=== PATIENT | male | born 1940 | race Caucasian/White ===

== ENCOUNTER 2024-12-27 11:45 | Emergency (ER) | payer OTHER, SELFPAY ==
[2024-12-27] VITALS (31 sets, daily range): BP systolic 56–110; BP diastolic 41–63; PULSE 83–127; RESP 17–48; O2SAT 45–100
--- NOTE | 2024-12-27 11:51 | ECG_ITS ---
[employer] [facility] [facility] 2024-12-27 Pat Name: Dk Deluca Department: Room: Gender: Male Optical Dispenser: : 1936-12-27 Requested By: Mike Love Order Number: [id number] Jam MD: Uri Bennett M.D. Measurements Intervals [place] Rate: 92 P: 72 KS: 167 QRS: 80 QRSD: 93 T: 68 QT: 309 QTc: 382 Interpretive Statements SINUS RHYTHM LOW QRS VOLTAGE IN PRECORDIAL LEADS [QRS DEFLECTION < 1.0 mV IN CHEST LEADS] No previous ECG available for comparison Electronically Signed On 12-29-2024 23:31:15 CDT by Uri Bennett M.D. [id number]
[2024-12-27 11:52] LABS: Arterial Blood Gas Hematocrit 31.2 % (42-52); Base Excess ABG -6.1 mmol/L (-2.0-2.0); Blood Gas Allen Test Pos; Blood Gas Operator Identificat WALCI; Blood Gas Sample Site Radial, right; Blood Gas Sample Type Arterial; HCO3 ABG 24.4 mmol/L (22-26); Oxygen Device VENT; PO2 FiO2 Ratio Arterial Blood 186
[2024-12-27 11:53] LABS: ABG PCO2 78.9 mmHg (35-45)
[2024-12-27 12:02] LABS: Glucose Point of Care 124 mg/dL (70-110)
--- NOTE | 2024-12-27 12:02 | PC.RESP ---
pt arrived intubated by ems with 8.5 tube approx 25cm at lip
--- NOTE | 2024-12-27 12:05 | CT_ITS ---
WS: [id number] CT HEAD NONCONTRAST HISTORY: unresponsive TECHNIQUE: Contiguous axial imaging performed through the brain. Bone and soft tissue windows. Sagittal and coronal reformats reviewed. All CT scans at [facility] use at least one of these dose optimization techniques: automated exposure control; mA and/or kV adjustment per patient size (includes targeted exams where dose is matched to clinical indication); or iterative reconstruction. DLP: 1261.94 mGy.cm COMPARISON: None available. No acute intracranial hemorrhage, midline shift or mass effect. Moderate symmetric atrophy. Severe small vessel disease confluent throughout the white matter. Additional small vessel disease bilaterally in the ge. Mild cerebellar atrophy. Ventricles: Ventricles and extra-axial spaces are prominent on the basis of atrophy. No inferior displacement of the cerebellar tonsils. Paranasal sinuses: As visualized are clear. Mastoid air cells: Well pneumatized. Calvarium and scalp: Skull is intact with no soft tissue edema or swelling. CT/CT head wo con* [id number] IMPRESSION: 1. No acute intracranial hemorrhage or edema. 2. Moderate atrophy with severe small vessel disease. 3. Additional small vessel disease in the ge.
--- NOTE | 2024-12-27 12:05 | W.ED.NEUROSD ---
HPI - Neuro Symptoms/Deficit General: Chief Complaint: Neuro Symptoms/Deficit Stated Complaint: unresponsive - intubated Time Seen by Provider: 12/27/24 11:48 History of Present Illness: Unknown aged male brought in by EMS after being found unresponsive at a local hotel. I did find a used needle in the toilet. Patient was intubated in the field, was given 2 L of normal saline and route started on Levophed. He received etomidate and then fentanyl and Versed in route . No prior medical history is available. Related Data Home Medications ?Medication ?Instructions ?Recorded ?Confirmed albuterol sulfate 90 mcg/actuation 2 puff inhalation QID PRN copd 12/27/24 12/27/24 aerosol inhaler amlodipine 10 mg tablet 10 mg PO DAILY 12/27/24 12/27/24 cholecalciferol (vitamin D3) 25 25 mcg PO DAILY 12/27/24 12/27/24 mcg (1,000 unit) chewable tablet (Vitamin D3) diphenhydramine HCl 25 mg capsule 25 mg PO BEDTIME PRN Sleep 12/27/24 12/27/24 (Benadryl) docusate sodium 100 mg capsule 100 mg PO TID PRN stool softener 12/27/24 12/27/24 (Colace) finasteride 5 mg tablet 5 mg PO DAILY 12/27/24 12/27/24 furosemide 40 mg tablet 40 mg PO QAM 12/27/24 12/27/24 imiquimod 5 % topical cream packet See Rx Instructions .Route .COMPLEX 12/27/24 12/27/24 ipratropium 0.5 mg-albuterol 3 mg 3 ml inhalation QID PRN copd 12/27/24 12/27/24 (2.5 mg base)/3 mL nebulization soln lactulose 10 gram/15 mL oral 15 ml PO DAILY 12/27/24 12/27/24 solution multivitamin 1 tab PO DAILY 12/27/24 12/27/24 rivaroxaban 20 mg tablet 20 mg PO QPM 12/27/24 12/27/24 simvastatin 40 mg tablet 20 mg PO QPM 12/27/24 12/27/24 tiotropium 2.5 mcg-olodaterol 2.5 2 puff inhalation DAILY 12/27/24 12/27/24 mcg/actuation mist for inhalation triamcinolone acetonide 0.1 % See Rx Instructions .Route .COMPLEX 12/27/24 12/27/24 topical ointment Allergies Allergy/AdvReac Type Severity Reaction Status Date / Time No Known Allergies Allergy Unverified 12/27/24 12:57 Review of Systems General: Reports: ROS unobtainable due to endotracheal tube and ROS unobtainable due to medical condition Physical Exam Const: GENERAL APPEARANCE: disheveled, frail appearing and patient mechanically ventilated Eye: PUPIL: Yes pupil size - right Right pupil size (mm): 2 and Yes pupil size - left Left pupil size (mm): 2 Cardio: COMMON NORMALS: regular rate and regular rhythm JUGULAR VENOUS DISTENTION: JVD positive to the level of the angle of the jaw RATE: regular rate RHYTHM: regular rhythm Neuro: OTHER: Patient intubated, responds the pain Skin: OTHER: No rash, however bedbugs are present Course Vital Signs: Vital signs: Vital Signs Pulse Rate 94 12/27/24 18:15 Respiratory Rate 48 H 12/27/24 18:15 Blood Pressure 84/55 12/27/24 18:15 Pulse Oximetry 45 L 12/27/24 18:15 Oxygen Delivery Me thod Mechanical Ventil ation 12/27/24 12:30 Fraction of Inspir ed Oxygen 75 12/27/24 16:05 MDM - Neuro Symptoms/Deficit Medical Decision Making Patient with respiratory failure with what appears to be hypoxic brain injury/encephalopathy. Patient was seen by the neurologist Dr. Coe. Patient did not have any contact information but we were able to eventually contact the son, sister and niece. They felt that patient would prefer not to be kept alive on a ventilator and would be preferred to be made more comfortable. Following this discussion patient will be extubated with all medication should often be placed on comfort care per family request. I do feel based on patient's likely outcome that this is a proper decision as he has very poor outcome. Patient will be admitted to the hospital for comfort care Prior to be admitted to the floor, patient did pass, Time of 1855 Lab Data 12/27/24 12:20 12/27/24 13:[address] 12/27/24 12:05 IMPRESSION: 1. No acute intracranial hemorrhage or edema. 2. Moderate atrophy with severe small vessel disease. 3. Additional small vessel disease in the ge. Chest X-Ray 12/27/24 14:04 IMPRESSION: Endotracheal tube and nasogastric tube positions as above. Left hemithorax abnormalities as above. The abnormalities in the left lung pulmonary parenchyma appear to represent atelectasis and possibly an acute/subacute inflammatory infiltrate with pleural effusion. Laboratory Results WBC 14.81 10^3/uL (3.29-11.43) H 12/27/24 12:20 RBC 3.85 10^6/uL (3.85-5.65) 12/27/24 12:20 Hgb 11.30 g/dL (11.27-16.99) 12/27/24 12:20 Hct 38.7 % (37-53) 12/27/24 12:20 MCV 100.5 fl (82-101) 12/27/24 12:20 MCH 29.4 pg (27-33) 12/27/24 12:20 MCHC 29.2 g/dL (30-55) L 12/27/24 12:20 RDW 16.0 % (12.1-15.1) H 12/27/24 12:20 Plt Count 269 10^3/cmm (157-399) 12/27/24 12:20 MPV 9.8 fL (7.4-10.4) 12/27/24 12:20 Neut % (Auto) 78.1 % 12/27/24 12:20 Lymph % (Auto) 9.0 % 12/27/24 12:20 Hart % (Auto) 11.4 % 12/27/24 12:20 Eos % (Auto) 0.1 % 12/27/24 12:20 Baso % (Auto) 0.3 % 12/27/24 12:20 Neut # (Auto) 11.57 10^3/uL (1.8-7.7) H 12/27/24 12:20 Lymph # (Auto) 1.3 10^3/uL (0.8-4.8) 12/27/24 12:20 Hart # (Auto) 1.7 10^3/uL (0.2-0.9) H 12/27/24 12:20 Eos # (Auto) 0.0 10^3/uL (0.0-0.8) 12/27/24 12:20 Baso # (Auto) 0.1 10^3/uL (0.0-0.1) 12/27/24 12:20 Nucleated RBC % (auto) 0.5 % 12/27/24 12:20 Nucleated RBCs # 0.1 /100WBC 12/27/24 12:20 Specimen Type Arterial 12/27/24 13:13 Sample Site Brachial, left 12/27/24 13:13 ABG pH 7.28 (7.35-7.45) L 12/27/24 13:13 ABG pCO2 57.3 mmHg (35-45) H 12/27/24 13:13 ABG pO2 91.1 mmHg (80.0-100.0) 12/27/24 13:13 ABG PO2/FiO2 Ratio 121 12/27/24 13:13 ABG HCO3 26.6 mmol/L (22-26) H 12/27/24 13:13 ABG O2 Saturation 95.5 12/27/24 13:13 ABG Base Excess -1.0 mmol/L (-2.0-2.0) 12/27/24 13:13 Neo Test Pos 12/27/24 13:13 A-a O2 Gradient 48.4 mmHg (5-10) H 12/27/24 13:13 Hematocrit 34.0 % (42-52) L 12/27/24 13:13 Hgb O2 Saturation 92.9 % (95-100) L 12/27/24 13:13 Carboxyhemoglobin 1.6 %THgb (0.4-20.1) 12/27/24 13:13 Methemoglobin 1.1 % (0.4-1.5) 12/27/24 13:13 Total Hemoglobin 11.1 g/dL (14-18) L 12/27/24 13:13 Sodium 141.0 mmol/L (131-143) 12/27/24 13:13 Potassium 5.4 mmol/L (3.5-5.0) H 12/27/24 13:13 Glucose 145.0 mg/dL (70-115) H 12/27/24 13:13 Ionized Calcium 1.1 mmol/L (1.1-1.4) 12/27/24 13:13 O2 Delivery Device Vent 12/27/24 13:13 FiO2 75.0 % 12/27/24 13:13 Tidal Volume 0.50 12/27/24 13:13 PEEP 5.0 cmH20 12/27/24 13:13 Mold Carpenter ID Wal[place] 12/27/24 13:13 Sodium 142 mmol/L (136-145) 12/27/24 13:16 Potassium 6.1 mmol/L (3.5-5.1) H 12/27/24 13:16 Chloride 100 mmol/L (98-107) 12/27/24 13:16 Carbon Dioxide 26 mmol/L (22-29) 12/27/24 13:16 Anion Gap 22.1 (5-19) H 12/27/24 13:16 BUN 45 mg/dL (8-23) H 12/27/24 13:16 Creatinine 2.2 mg/dL (0.7-1.2) H 12/27/24 13:16 GFR Calculation Not Reportable 12/27/24 13:16 Glucose 126 mg/dL (65-115) H 12/27/24 13:16 POC Glucose 124 mg/dL (70-110) H 12/27/24 11:59 Calculated Osmolality 307 mOsm/kg (285-295) H 12/27/24 13:16 Lactic Acid 5.8 mmol/L (0.5-2.2) H* 12/27/24 13:16 Lactic Acid (Sepsis) 4.7 mmol/L (0.5-2.2) H* 12/27/24 16:08 Calcium 8.2 mg/dL (8.5-10.5) L 12/27/24 13:16 Magnesium 2.7 mg/dL (1.7-2.3) H 12/27/24 13:16 Total Bilirubin 0.5 mg/dL (0.15-1.2) 12/27/24 13:16 AST 104 U/L (0-40) H 12/27/24 13:16 ALT 86 U/L (0-41) H 12/27/24 13:16 Alkaline Phosphatase 71 U/L (40-130) 12/27/24 13:16 Troponin T Baseline 285 ng/L (0-15) H* 12/27/24 13:16 Troponin T 120 Minute 315.4 ng/L (0-15) H 12/27/24 15:15 Delta Troponin T 30.4 ABS# (0-10) H* 12/27/24 15:15 Total Protein 6.2 g/dL (6.6-8.7) L 12/27/24 13:16 Albumin 3.5 g/dL (3.5-5.2) 12/27/24 13:16 Globulin 2.7 g/dL (1.3-4.6) 12/27/24 13:16 Procalcitonin 0.20 ng/mL (0-0.5) 12/27/24 13:16 Urine Color Yellow (Yellow) 12/27/24 12:20 Urine Appearance Clear (CLEAR) 12/27/24 12:20 Urine pH 5 (5-7) 12/27/24 12:20 Ur Specific [place] 1.025 (1.005-1.030) 12/27/24 12:20 Urine Protein Trace (Negative) 12/27/24 12:20 Urine Glucose (UA) Norm (Normal) 12/27/24 12:20 Urine Ketones Negative (Negative) 12/27/24 12:20 Urine Blood 2+ (Negative) H 12/27/24 12:20 Urine Nitrate Negative (Negative) 12/27/24 12:20 Urine Bilirubin Neg (Negative) 12/27/24 12:20 Urine Urobilinogen Norm mg/dL (Negative) 12/27/24 12:20 Ur Leukocyte Esterase Negative (Negative) 12/27/24 12:20 Urine RBC 5-10 /hpf (0-2) H 12/27/24 12:20 Urine WBC 0-4 /hpf (0-5) H 12/27/24 12:20 Ur Squamous Epith Cells None /hpf (0-5) 12/27/24 12:20 Amorphous Sediment Not Reportable 12/27/24 12:20 Urine Bacteria None /hpf (NONE) 12/27/24 12:20 Urine Mucus None /hpf 12/27/24 12:20 Urine Opiates Screen Negative ng/mL (Negative) 12/27/24 12:20 Ur Barbiturates Screen Negative ng/mL (Negative) 12/27/24 12:20 Ur Phencyclidine Scrn Negative ng/mL (Negative) 12/27/24 12:20 Ur Amphetamines Screen Negative ng/mL (Negative) 12/27/24 12:20 U Benzodiazepines Scrn Negative ng/mL (Negative) 12/27/24 12:20 Urine Cocaine Screen Negative ng/mL (Negative) 12/27/24 12:20 U Marijuana (THC) Screen Negative ng/mL (Negative) 12/27/24 12:20 Ethyl Alcohol < 10 mg/dL (0-10) 12/27/24 13:16 All radiology interpretation(s) finalized by discharge Critical Care Time Critical Care Time: Critical Care Time: Yes Total Critical Care Time: 180 Attestation: This case had a high probability of a clinically significant, sudden, or life threatening deterioration of this patient's condition which required my full and direct attention, intervention and personal management. Discharge Plan Discharge Patient Disposition: Clinical Impression: Anoxic encephalopathy, Respiratory failure Probable Cause of Probable cause of : Respiratory arrest Coding Level of Care Code ED Broiler Supervisor for Dania Leos
[2024-12-27] MEDS: norepinephrine 4 MG/250 ML BAG 18.75 MG IV (12:37)
--- NOTE | 2024-12-27 12:39 | PC.NURSE ---
BED BUGS PRESENT AT TIME OF PATIENT'S ARRIVAL. PATIENT LINENS CHANGED AND CLOTHING CUT AND REMOVED. PATIENT VALDEZ PLACED AND OG TUBE IN PLACE. LEVOPHED ORDERED PER PROVIDER.
[2024-12-27 12:43] LABS: Amphetamines Screen Urine Negative (Negative); Barbiturates Screen Urine Negative (Negative); Benzodiazepines Screen Urine Negative (Negative); Cocaine Screen Urine Negative (Negative); Opiate Screen Urine Negative (Negative); PCP Screen Urine Negative (Negative); THC Screen Urine Negative (Negative)
[2024-12-27 12:44] LABS: Basophils # 0.1 10^3/uL (0.0-0.1); Basophils % 0.3 %; Eosinophils % 0.1 %; Hematocrit 38.7 % (37-53); Lymphocytes # 1.3 10^3/uL (0.8-4.8); Mean Corpuscular HGB Conc 29.2 g/dL (30-55); Mean Corpuscular Hemoglobin 29.4 pg (27-33); Mean Corpuscular Volume 100.5 fl (82-101); Mean Platelet Volume 9.8 fL (7.4-10.4); Monocytes # 1.7 10^3/uL (0.2-0.9); Monocytes % 11.4 %; Neutrophils # 11.57 10^3/uL (1.8-7.7); Neutrophils % 78.1 %; Nucleated Red Blood Cells # 0.1 /100WBC; Nucleated Red Blood Cells % 0.5 %; Platelet Count 269 10^3/cmm (157-399); Red Blood Count 3.85 10^6/uL (3.85-5.65); White Blood Count 14.81 10^3/uL (3.29-11.43)
--- NOTE | 2024-12-27 12:51 | PC.PHAR ---
Addendum entered by Tawny Andrews 12/27/24 13:42: Pt intubated-unsure when last took medications. [facility]. Addendum entered by Tawny Andrews 12/27/24 12:58: Pt uses [facility] for urgent need medications. They have no known allergies listed. Original Note: [facility] is [facility] 12:51pm 12/27/24
--- NOTE | 2024-12-27 12:56 | USCV_ITS ---
Robb Pascual Age: 84 Gender: M : 1940 Exam Date: 12/27/2024 13:21 Ordering Phys: Mike Love DO Technologist: Exam Location: [facility] Indication: BP: 100 / 60 HR: 83 Rhythm: Sinus Technical Quality: MEASUREMENTS (Male / Female) Normal Values 2D ECHO LV Diastolic Diameter PLAX 2.8 cm 4.2 - 5.9 / 3.9 - 5.3 cm IVS Diastolic Thickness 1.3 cm 0.6 - 1.0 / 0.6 - 0.9 cm IVS Systolic Thickness 1.5 cm LVPW Diastolic Thickness 1.2 cm 0.6 - 1.0 / 0.6 - 0.9 cm LVPW Systolic Thickness 1.5 cm LVOT Diameter 2.1 cm LV Ejection Fraction 2D Teich 58.0 % LV Ejection Fraction MOD 2C 73.6 % LV Ejection Fraction 2C AL 73.8 % LA Diameter 4.2 cm RA Systolic Volume 4C AL 126.5 ml RA Systolic Volume 4C MOD 119.2 ml LA Sys Volume AL 29.7 cm cubed LA Sys Volume Index AL 15.4 cm cubed/m squared Aorta at Sinotubular Diameter 3.1 cm IVC Diameter 1.9 cm M-MODE LA Ao Ratio MM 1.2 AV Cusp Separation MM 1.8 cm DOPPLER AV Peak Velocity 179.0 cm/s LVOT Peak Velocity 86.0 cm/s AV Area Cont Eq vti 2.2 cm squared AV Area Cont Eq pk 1.6 cm squared MV Peak Velocity 81.0 cm/s MV Area PHT 5.1 cm squared Mitral E to A Ratio 0.8 TV Peak Velocity 264.5 cm/s TR Peak Velocity 350.0 cm/s TR Peak Gradient 49.0 mmHg TV Peak E Velocity 45.0 cm/s PV Peak Velocity 98.0 cm/s FINDINGS Left Ventricle Normal LV size ejection fraction of 74%. No gross wall motion normalities.Grade I/IV diastolic dysfunction (abnormal relaxation filling pattern), normal to mildly elevated filling pressures. Right Ventricle The right ventricle appears to be dilated with moderate diffuse hypokinesia. Thickening of the free wall Right Atrium Moderately dilated right atrium Left Atrium Normal left atrial size. Mitral Valve Mild mitral annular calcification. Aortic Valve Thickened aortic valve. Morphology could not be delineated well Tricuspid Valve Tricuspid regurgitation velocity of 3.5 m/s with an estimated PA pressure of around 61 mmHg.yllk-ys-ucyhihgs tricuspid valve regurgitation. Pulmonic Valve Pulmonic valve not well visualized. Pericardium No pericardial effusion. Aorta Normal aortic annulus size. IVC Normal IVC size.normal IVC dimension with <50% respiratory change of the inferior vena cava. CONCLUSIONS Normal LV size ejection fraction of 74%. No gross wall motion normalities.Grade I/IV diastolic dysfunction (abnormal relaxation filling pattern), normal to mildly elevated filling pressures. The right ventricle appears to be dilated with moderate diffuse hypokinesia. Some features of ventricular hypertrophy Moderately dilated right atrium Htcx-fq-yzfgoaqe tricuspid valve regurgitation. Mild mitral annular calcification. Moderate pulm hypertension with estimated pulmonary artery peak systolic pressure of 61 mmHg There is no pericardial effusion. No similar previous studies are available for comparison Dr Uri Bennett MD [facility] (Electronically Signed) Final Date: 27 Dec 2024 14:36 S
[2024-12-27 13:10] LABS: Add Urine Microscopic? YES; Bilirubin Urine Neg (Negative); Blood Urine 2+ (Negative); Glucose Urine UA Norm (Normal); Ketones Urine Negative (Negative); Leukocyte Esterase Urine Negative (Negative); Nitrate Urine Negative (Negative); Protein Urine Trace (Negative); Specific Gravity, Urine 1.025 (1.005-1.030); Urine Appearance Clear (CLEAR); Urine Color Yellow (Yellow); Urobilinogen Urine Norm (Negative); pH Urine 5 (5-7)
[2024-12-27 13:11] LABS: Add Urine Culture? No; WBC Urine 0-4 /hpf (0-5)
[2024-12-27 13:24] LABS: ABG PCO2 57.3 mmHg (35-45); ABG PH Result 7.28 (7.35-7.45); Alveolar-Arterial Oxygen Gradi 48.4 mmHg (5-10); Blood Gas Allen Test Pos; Blood Gas Operator Identificat WALCI; Blood Gas Sample Site Brachial, left; Blood Gas Sample Type Arterial; Carboxyhemoglobin 1.6 %THgb (0.4-20.1); HCO3 ABG 26.6 mmol/L (22-26); HGB O2 Sat 92.9 % (95-100); Ionized Calcium Level - ABG 1.1 mmol/L (1.1-1.4); Methemoglobin 1.1 % (0.4-1.5); Oxygen Device VENT; Oxygen Saturation ABG 95.5; PO2 ABG 91.1 mmHg (80.0-100.0); PO2 FiO2 Ratio Arterial Blood 121; Potassium Level - ABG 5.4 mmol/L (3.5-5.0); Total Hemoglobin 11.1 g/dL (14-18)
[2024-12-27] MEDS: fentaNYL 1,000 MCG/100 ML BAG 2.5 MCG IV (13:38)
[2024-12-27] MEDS: midazolam hcl 100 MG/100 ML BAG IV (13:38)
--- NOTE | 2024-12-27 13:46 | PC.NURSE ---
FENTANYL AND VERSED STARTED DUE TO PATIENT MOVEMENT OF LOWER EXTREMITIES AND MOUTH.
[2024-12-27 13:49] LABS: Alanine Aminotransferase 86 U/L (0-41); Albumin Level 3.5 g/dL (3.5-5.2); Alkaline Phosphatase 71 U/L (40-130); Anion Gap 22.1 (5-19); Aspartate Amino Transferase 104 U/L (0-40); Blood Urea Nitrogen 45 mg/dL (8-23); Calcium 8.2 mg/dL (8.5-10.5); Carbon Dioxide 26 mmol/L (22-29); Chloride 100 mmol/L (98-107); Globulin 2.7 g/dL (1.3-4.6); Glucose 126 mg/dL (65-115); Magnesium 2.7 mg/dL (1.7-2.3); Osmolality Calculated 307 mOsm/kg (285-295); Potassium 6.1 mmol/L (3.5-5.1); Sodium 142 mmol/L (136-145); Total Bilirubin 0.5 mg/dL (0.15-1.2); Total Protein 6.2 g/dL (6.6-8.7)
[2024-12-27 13:55] LABS: Alcohol Level < 10 mg/dL (0-10); Troponin(5th) Baseline 285 ng/L (0-15)
[2024-12-27 13:56] LABS: Lactic Sepsis W/Reflex 5.8 mmol/L (0.5-2.2)
--- NOTE | 2024-12-27 14:04 | XR_ITS ---
WS: [id number] XR chest 1V portable [id number] REASON FOR EXAM: tube placement FINDINGS: No comparison examination. There is an endotracheal tube in place with tip is at the level of the aortic arch which is somewhat proximal from normal placement. There is a nasogastric tube in place with the tip in a position consistent with the junction of the fundus and body of the stomach. Moderate tortuosity and ectasia of the thoracic aorta with calcification of the aortic arch. The heart size appears normal. Prominent central pulmonary arteries bilaterally. Focal irregular lung opacity and thick linear lung opacity present in the left lower lung. Bullous disease is seen in the left lower lung and in the left upper lung. There is blunting of the left costophrenic angle compatible with a left pleural effusion. There are chronic appearing interstitial lung opacities in the mid right upper lung field and within the right infrahilar region. There may be a small right pleural effusion. XR/XR chest 1V portable [id number] IMPRESSION: Endotracheal tube and nasogastric tube positions as above. Left hemithorax abnormalities as above. The abnormalities in the left lung pulm onary parenchyma appear to represent atelectasis and possibly an acute/subacute inflammatory infiltrate with pleural effusion.
--- NOTE | 2024-12-27 14:05 | PC.NURSE ---
PER PROVIDER, CONTINUE LEVOPHED DRIP AT 7 MG.
--- NOTE | 2024-12-27 14:12 | PC.NURSE ---
FAMILY FRIEND CONTACTED, ADELAIDE, STATES PATIENT HAS NO FAMILY MEMBERS IN TOWN AND DOES NOT HAVE NAMES OR PHONE NUMBERS AVAILABLE. ADELAIDE STATES HE HAS A SISTER IN A SENIOR CARE IN [place] BUT CAN PROVIDE NO FURTHER INFORMATION. PROVIDER MADE AWARE.
--- NOTE | 2024-12-27 14:21 | ECG_ITS ---
[employer] Test Date: 2024-12-27 Pat Name: Robb Pascual Department: Room: Gender: Male Provider Relations Consultant: : 1940 Requested By: Mike Love Order Number: [id number] Jam MD: Uri Bennett M.D. Measurements Intervals [place] Rate: 84 P: 76 ID: [id number] QRS: 76 QRSD: 98 T: 92 QT: 374 QTc: 443 Interpretive Statements SINUS RHYTHM MODERATE T-WAVE ABNORMALITY, CONSIDER ANTEROLATERAL ISCHEMIA [-0.1+ mV T-WAVE IN V3-V6] No previous ECG available for comparison Electronically Signed On 12-29-2024 23:31:01 CDT by Uri Bennett M.D. [id number]
[2024-12-27 15:12] LABS: Reflex Lactate Order REFLEX LACTIC ORDERD
--- NOTE | 2024-12-27 15:27 | PC.NURSE ---
NURSE PACK TRAIN DRIVER DONALD TRIED TO BE IN CONTACT WITH FAMILY MEMBERS. MOST RECENT IS A PHONE NUMBER FOR A NIECE. THIS NURSE CALLED PHONE NUMBER AND STATED THEY WERE ONLY [employer] FRIENDS FOR 25 YEARS, NO ACTUAL FAMILY. STATED THEY WOULD TRY AND FIND A PHONE NUMBER.
[2024-12-27 15:47] LABS: Troponin 5 2HR 315.4 ng/L (0-15); Troponin 5 2HR Delta 30.4 ABS# (0-10)
[2024-12-27 16:35] LABS: Lactic Acid level (Lactate) 4.7 mmol/L (0.5-2.2)
--- NOTE | 2024-12-27 16:43 | PC.NURSE ---
SEDATION TURNED ON OFF PER PROVIDER.
[2024-12-27] MEDS: cefTRIAXone 1,000 mg SDV 1000 MG IVP (17:26)
[2024-12-27] MEDS: levETIRAcetam 1,000 MG/100 ML PREMIX 400 MG IV (17:34)
--- NOTE | 2024-12-27 17:43 | PM.CONSULT ---
Providers/Reason For Consult Consulting Physician/Specialty*: Errol Coe MD neurology and epilepsy Reason for Consult*: Decreased level consciousness assess for anoxic encephalopathy and patient found down on 12/27/2024 in a hotel for undetermined period of time Primary Care Provider: IQRA Sosa History of Present Illness History of Present Illness Robb Pascual is a 84 year old male who was found down on 12/27/2024 in a hotel. Duration of how long the patient had been down and unconscious could not be determined. The patient was brought to [facility] emergency department. Patient was was sedated and intubated. Noncontrast head CT was performed and reported to revealed no acute findings. As a result neurology consult was obtained. Patient is now off sedation. Patient is still in emergency department room #10 and intubated. The patient has positive corneal reflexes and closes eyes to tactile stimuli of his face. Pupils 3 mm round reactive light and accommodation. Patient not following commands. Motor testing difficult to assess secondary to decreased level consciousness but at times the patient appears to display questionable slight single myoclonic type movements in the upper extremities. There is no purposeful movement of his extremities. Deep tendon reflex revealed plantar responses bilaterally. Throat difficult to assess secondary to intubation 2. Patient is not breathing over the ventilator. Respiration rate 18 on the ventilator. Blood pressure reveals hypotension and patient is on dopamine drip. BUN and creatinine elevated at 45 and 2.2 respectively. Point of contact glucose Accu-Chek 126. Lactic acid elevated at 5.8. Magnesium elevated 2.7. Calcium decreased at 8.2. AST elevated 104 ALT elevated to 86. Drug allergies: No known drug allergies Current medications: Finasteride 5 mg p.o. daily Lasix 40 mg p.o. daily Colace 100 mg p.o. 3 times daily as needed Imiquimod to use as directed Lactulose 15 mg p.o. daily Rivaroxaban 20 mg p.o. daily Zocor 20 mg p.o. daily Multidose inhalers Habits: Unknown Family history: Unknown Review of Systems General: Reports: ROS unobtainable due to endotracheal tube and ROS unobtainable due to medical condition Medications/Allergies Home Medications ?Medication ?Instructions ?Recorded ?Confirmed ?Last Taken ?Type albuterol sulfate 90 mcg/actuation 2 puff inhalation QID PRN copd 12/27/24 12/27/24 Unknown History aerosol inhaler amlodipine 10 mg tablet 10 mg PO DAILY 12/27/24 12/27/24 Unknown History cholecalciferol (vitamin D3) 25 25 mcg PO DAILY 12/27/24 12/27/24 Unknown History mcg (1,000 unit) chewable tablet (Vitamin D3) diphenhydramine HCl 25 mg capsule 25 mg PO BEDTIME PRN Sleep 12/27/24 12/27/24 Unknown History (Benadryl) docusate sodium 100 mg capsule 100 mg PO TID PRN stool softener 12/27/24 12/27/24 Unknown History (Colace) finasteride 5 mg tablet 5 mg PO DAILY 12/27/24 12/27/24 Unknown History furosemide 40 mg tablet 40 mg PO QAM 12/27/24 12/27/24 Unknown History imiquimod 5 % topical cream packet See Rx Instructions .Route .COMPLEX 12/27/24 12/27/24 Unknown History ipratropium 0.5 mg-albuterol 3 mg 3 ml inhalation QID PRN copd 12/27/24 12/27/24 Unknown History (2.5 mg base)/3 mL nebulization soln lactulose 10 gram/15 mL oral 15 ml PO DAILY 12/27/24 12/27/24 Unknown History solution multivitamin 1 tab PO DAILY 12/27/24 12/27/24 Unknown History rivaroxaban 20 mg tablet 20 mg PO QPM 12/27/24 12/27/24 12/26/24 History simvastatin 40 mg tablet 20 mg PO QPM 12/27/24 12/27/24 Unknown History tiotropium 2.5 mcg-olodaterol 2.5 2 puff inhalation DAILY 12/27/24 12/27/24 Unknown History mcg/actuation mist for inhalation triamcinolone acetonide 0.1 % See Rx Instructions .Route .COMPLEX 12/27/24 12/27/24 Unknown History topical ointment Allergies Allergy/AdvReac Type Severity Reaction Status Date / Time No Known Allergies Allergy Unverified 12/27/24 12:57 Current Medications Generic Name Dose Route Start Last Admin Trade Name Freq PRN Reason Stop Dose Admin Fentanyl 1,000 mcg in 100 mls @ 0 mls/hr 12/27/24 13:00 12/27/24 16:43 Sublimaze IV 0 mcg/hr .Q0M VIVEK 0 mls/hr Protocol Titration Per Protocol Midazolam HCl 100 mg in 100 mls @ 0 mls/hr 12/27/24 13:00 12/27/24 16:43 Versed IV 0 mg/hr .Q0M VIVEK 0 mls/hr Protocol Titration Per Protocol Dopamine HCl/Dextrose 400 mg in 250 mls @ 12.757 mls/hr 12/27/24 14:00 12/27/24 15:04 Intropin Drip IV Not Given CONT VIVEK Protocol 5 MCG/KG/MIN Vitals/I&O/Wt Last Vital Signs Pulse 89 12/27/24 17:15 Resp 18 12/27/24 17:15 BP 110/62 12/27/24 17:15 Pulse Ox 100 12/27/24 17:15 O2 Del Method Mechanical Ventilation 12/27/24 12:30 FiO2 75 12/27/24 16:05 12/27/24 12/27/24 12/27/24 06:59 14:59 22:59 Intake Total 26.563 / 26.563 12.241 / 38.804 Balance 26.563 / 26.563 12.241 / 38.804 Weight last 48 hrs Weight 150 lb Physical Exam Narrative: The patient is intubated. There is no spontaneous breaths over the ventilator. Sedation recently discontinued approximately 30 minutes prior to this neurological assessment. Pupils 3 mm round reactive to light and accommodation. Patient does have positive corneal reflexes bilaterally. Patient does not follow commands. Motor testing difficult to assess secondary to decreased level consciousness. At times there appeared to be an occasional slight brief myoclonic type jerking of his upper extremities. But this was not consistent. Plantar responses flexor bilaterally. There was no clonus. Sensory examination was intact to corneal reflexes. Patient does move his toes slightly to tactile stimuli. Throat could not be assessed secondary to intubation tube. Heart regular rhythm and rate. Extremities were negative for cyanosis Data 12/27/24 12:20 12/27/24 13:16 Micro: Microbiology 12/27/24 12:00 Gram Stain - Final Sputum - Endotracheal Tube Aspirate 12/27/24 13:16 Blood Culture - Preliminary Blood SPECIMEN COLLECTED 12/27/24 13:16 Blood Culture - Preliminary Blood SPECIMEN COLLECTED A&P Assessment and plan (1) Anoxic encephalopathy: Impression: 1. Clinical examination suggestive of anoxic encephalopathy, prognosis guarded 2. History of anticoagulation therapy Plan: 1. Agree with weaning patient off of sedation to be able to further assess mental status 2. Recommend repeat noncontrast head CT 12/28/2024 3. Recommend admit to the intensive care unit for further treatment 4. Recommend obtaining portable EEG recording to assess for encephalopathy and to rule out seizures 5. Agree with IV Keppra 1 g IV load followed by IV Keppra 500 mg every 12 hours 6. Seizure precautions 7. Ativan 1 to 2 mg IV every 6 hours as needed seizures lasting greater than 2 minutes or more than 2 seizures within a 1 hour period of time 8. Consider obtaining lab for total CPK PDMP PDMP Reviewed: Not Reviewed Consult Attestations Medical Necessity Statement: The patient was evaluated by neurology for decreased level consciousness of the patient was found down in a hotel for undetermined period of time Coding Level of Care Code 61529 Diagnoses Anoxic encephalopathy G93.1
[2024-12-27] MEDS: morphine 4 mg/mL SDV 1 mL 2 MG IVP (18:09)
[2024-12-27] MEDS: LORazepam 1 MG/0.5 ML injection 2 MG IVP (18:10)
--- NOTE | 2024-12-27 18:31 | PM.HP ---
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 Patient was seen by neurology, concerns for anoxic encephalopathy, ER provider Dr. Love contacted son/sister/niece, who would prefer patient to be not kept on the ventilator, preferred comfort care, for for terminal extubation, and all medications to be stopped and pursue comfort care, due to poor prognosis, poor outcome. During my examination blood pressures are 60s over 40s, he is saturating 89 on room air, in moderate respiratory distress nasal flaring, intercostal traction suprasternal retractions, tachypnea, tachycardia, crackles and wheezing in all lung pope, is mottled up to the level of the abdomen, pupils are fixed and dilated, nonresponsive to light, does not withdraw from pain bilateral upper extremities, Babinski's upward going bilaterally, did not does not respond to his name, pursuing comfort care, patient will be admitted for comfort care Medications/Allergies Home Medications ?Medication ?Instructions ?Recorded ?Confirmed ?Last Taken ?Type albuterol sulfate 90 mcg/actuation 2 puff inhalation QID PRN copd 12/27/24 12/27/24 Unknown History aerosol inhaler amlodipine 10 mg tablet 10 mg PO DAILY 12/27/24 12/27/24 Unknown History cholecalciferol (vitamin D3) 25 25 mcg PO DAILY 12/27/24 12/27/24 Unknown History mcg (1,000 unit) chewable tablet (Vitamin D3) diphenhydramine HCl 25 mg capsule 25 mg PO BEDTIME PRN Sleep 12/27/24 12/27/24 Unknown History (Benadryl) docusate sodium 100 mg capsule 100 mg PO TID PRN stool softener 12/27/24 12/27/24 Unknown History (Colace) finasteride 5 mg tablet 5 mg PO DAILY 12/27/24 12/27/24 Unknown History furosemide 40 mg tablet 40 mg PO QAM 12/27/24 12/27/24 Unknown History imiquimod 5 % topical cream packet See Rx Instructions .Route .COMPLEX 12/27/24 12/27/24 Unknown History ipratropium 0.5 mg-albuterol 3 mg 3 ml inhalation QID PRN copd 12/27/24 12/27/24 Unknown History (2.5 mg base)/3 mL nebulization soln lactulose 10 gram/15 mL oral 15 ml PO DAILY 12/27/24 12/27/24 Unknown History solution multivitamin 1 tab PO DAILY 12/27/24 12/27/24 Unknown History rivaroxaban 20 mg tablet 20 mg PO QPM 12/27/24 12/27/24 12/26/24 History simvastatin 40 mg tablet 20 mg PO QPM 12/27/24 12/27/24 Unknown History tiotropium 2.5 mcg-olodaterol 2.5 2 puff inhalation DAILY 12/27/24 12/27/24 Unknown History mcg/actuation mist for inhalation triamcinolone acetonide 0.1 % See Rx Instructions .Route .COMPLEX 12/27/24 12/27/24 Unknown History topical ointment Allergies Allergy/AdvReac Type Severity Reaction Status Date / Time No Known Allergies Allergy Unverified 12/27/24 12:57 Vitals/I&O/Wt Last Vital Signs Pulse 94 12/27/24 18:15 Resp 48 H 12/27/24 18:15 BP 84/55 12/27/24 18:15 Pulse Ox 45 L 12/27/24 18:15 O2 Del Method Mechanical Ventilation 12/27/24 12:30 FiO2 75 12/27/24 16:05 12/27/24 12/27/24 12/27/24 06:59 14:59 22:59 Intake Total 26.563 / 26.563 220.741 / 247.304 Balance 26.563 / 26.563 220.741 / 247.304 Weight last 48 hrs Weight 68.039 kg Physical Exam Const: OTHER: Disheveled appearance, unkempt in appearance Unresponsive, alert oriented x 0 Eye: OTHER: Fixed, dilated, nonresponsive to light Resp: OTHER: Crackles wheezing in all lung pope, mild to moderate respite distress nasopharynx MicroKlenz retractions, suprasternal retractions, tachypnea Cardio: COMMON NORMALS: regular rhythm, S1 normal heart sound present and S2 normal heart sound present RATE: tachycardic RHYTHM: regular rhythm HEART SOUNDS: S1 normal heart sound present and S2 normal heart sound present GI: OTHER: Abdomen soft, distended, diminished bowel sounds, no guarding, no rebound, no rigidity Extremity: COMMON NORMALS: no pedal edema Urinary Catheter Management: Thompson: Cath Placed During This Visit: yes Urinary Catheter Date of Insertion: 12/27/24 Urinary Catheter Time of Insertion: 15:00 Data 12/27/24 12:20 12/27/24 13:16 Micro: Microbiology 12/27/24 12:00 Gram Stain - Final Sputum - Endotracheal Tube Aspirate 12/27/24 13:16 Blood Culture - Preliminary Blood SPECIMEN COLLECTED 12/27/24 13:16 Blood Culture - Preliminary Blood SPECIMEN COLLECTED A&P Assessment and plan (1) Need for comfort care: Plan Acute hypoxic respiratory failure secondary to pneumonia, possible aspiration pneumonia, concern for hypercoagulable event, given right ventricular failure evidence, on echocardiogram, concerns for pulmonary embolism, concerns for pulmonary edema, NSTEMI, possible cardiac event, concern for cardiogenic shock, concerns for septic shock, acute renal failure, acute encephalopathy, concerns for anoxic brain injury, multiorgan failure Admitted for comfort care PDMP PDMP Reviewed: Not Reviewed Attestations Medical Necessity Statement*: Patient requires hospitalization, inpatient, greater than 2 midnights for comfort care Diagnoses Need for comfort care
--- NOTE | 2024-12-27 20:40 | PC.NURSE ---
Skyler Time: 20:15 MTS: Pt is released by MTS and Saving Site @ 2039 Ref # [id number] Juliano Alfonso [employer] Technician [place] Collected body @ 2040
== END 2024-12-27 20:10 | disposition expired ==
PROVIDERS: Emergency Provider Student in an Organized Health Care Education/Training Program; PCP Nurse Practitioner
DX: G93.1 Anoxic brain damage, not elsewhere classified (principal); J96.90 Respiratory failure, unspecified, unspecified whether with hypoxia or hypercapnia
CPT/HCPCS: 36415; 36416; 36600; 51702; 70450; 71045; 80051; 80053; 80306; 80307; 81001; 82330; 82803; 82805; 82962; 83605; 83735; 84145; 84484; 85025; 87040; 87070; 87205; 93005; 93306; 94002; 94799; 96365; 96366; 96367; 96375; 99291; 99292; J0696; J1953; J2060; J2250; J2270; J3010; J7030; J9999